=== PATIENT | female | born 1980 | race Caucasian/White ===

== ENCOUNTER 2024-11-24 12:02 | Emergency (ER) | payer BC ==
[~2024-11-24] VITALS: Ht 170.2 cm; Wt 64.4 kg
[2024-11-24] MEDS ORDERED: HYDROCODONE/APAP 5/325MG TABLET ONE (13:49)
[2024-11-24] MEDS: HYDROCODONE/APAP 5/325MG TABLET PO ONE (13:51)
[2024-11-24] MEDS ORDERED: RIVA15TA PO (14:27)
[2024-11-24 14:49] VITALS: BP 112/76; TEMP 98.1; O2SAT 97
== END 2024-11-24 14:49 | disposition home or self-care (01) ==
LOC: ER 12:13
DX: I82.501 Chronic embolism and thrombosis of unspecified deep veins of right lower extremity (principal); I87.2 Venous insufficiency (chronic) (peripheral); J44.89 Other specified chronic obstructive pulmonary disease; E66.01 Morbid (severe) obesity due to excess calories; Z68.22 Body mass index [BMI] 22.0-22.9, adult; Z79.01 Long term (current) use of anticoagulants; Z88.1 Allergy status to other antibiotic agents
CPT/HCPCS: 71045-TC; 93970-TC